=== PATIENT | male | born 1980 | race Caucasian/White ===

== ENCOUNTER 2017-08-28 01:38 | Emergency (ER) | payer OTHER ==
[~2017-08-28] VITALS: Ht 182.9 cm; Wt 72.6 kg
[~2017-08-28 01:38] MED LIST: HYDROCODONE-APA1 TA1; IBUPROFEN 800800 M1 PO; NORCO 5-325 TA1 EACH PO; PENICILLIN VK250 MG PO; PERCOCET PO
[2017-08-28 02:03] VITALS: BP 133/77
== END 2017-08-28 02:03 | disposition left against medical advice (07) ==
LOC: M.ERS 01:38
DX: R68.84 Jaw pain (principal); F17.210 Nicotine dependence, cigarettes, uncomplicated